=== PATIENT | female | born 1980 | race Hispanic/Latino ===

== ENCOUNTER → 2022-05-28 | Outpatient (CLI) | payer BC | END | disposition home or self-care (01) | LOC: RAH 13:29 | PROVIDERS: ATTEND Internal Medicine | DX: R10.2 Pelvic and perineal pain (principal); R93.89 Abnormal findings on diagnostic imaging of other specified body structures; Z87.42 Personal history of other diseases of the female genital tract | CPT/HCPCS: 76830; 76857 ==